=== PATIENT | male | born 1965 | race Caucasian/White ===

== ENCOUNTER → 2020-10-03 01:18 | Outpatient (CLI) | payer OTHER, SELFPAY ==
[2020-10-03 19:48] LABS: SARS-CoV-2 RNA PCR Negative
== END ==
PROVIDERS: PCP Family Medicine Sports Medicine; Visit Provider Internal Medicine Gastroenterology
DX: Z01.12 Encounter for hearing conservation and treatment (principal); Z20.822 Contact with and (suspected) exposure to COVID-19
CPT/HCPCS: C9803; U0003; U0005

== ENCOUNTER 2020-10-07 02:14 | Day surgery (SDC) | payer OTHER, SELFPAY ==
[2020-09-29 14:42] VITALS: BMI 29.0
[2020-10-07 07:15] VITALS: BP 155/100; PULSE 79; RESP 20; TEMP 36.3; O2SAT 100; BMI 29.6
--- NOTE | 2020-10-07 07:27 | PM.HPGS ---
History of Present Illness History of Present Illness Consent: Risks, benefits, and alternatives have been discussed and questions answered. Patient agrees to proceed with procedure. Chief complaint: Neoplasm Screening Narrative: Jw Ryan is a 55 year old male referred for colon cancer screening Review of Systems Review of Systems: All systems reviewed & are unremarkable except as noted in HPI and below [facility] Social History Social History Smoking packs per day: 0.5 Smoking cigarettes per day: 10.0 Years smoked: 15 Smoking pack-years: 7.50 Smoking status: Former smoker Tobacco type: cigarettes Alcohol intake: never Substance use type: does not use Living arrangements: with family Spiritual care concerns: No Meds Home Medications and Allergies Home Medications Medication Instructions Recorded Confirmed Type sodium,potassium,mag sulfates 17.5 See Rx Instructions PO .COMPLEX 09/25/20 Rx gram-3.13 gram-1.6 gram oral soln #354 ml atorvastatin 20 mg PO DAILY 09/29/20 09/29/20 History metformin 500 mg PO DAILY 09/29/20 09/29/20 History Allergies Allergy/AdvReac Type Severity Reaction Status Date / Time No Known Allergies Allergy Verified 10/07/20 07:14 Vital Signs Vital Signs - 24 hr 10/07/20 07:15 Temperature 36.3 C L Pulse Rate 79 Respiratory Rate 20 Blood Pressure 155/100 H Pulse Oximetry 100 Exam Resp: Auscultation: clear to auscultation bilaterally Cardio: Rate: regular rate Rhythm: regular rhythm GI: GI Palp: Yes Soft to palpation and No Tenderness to palpation present (GI) Assessment and Plan Assessment and plan (1) Colon cancer screening: Code(s): Z12.11 - Encounter for screening for malignant neoplasm of colon Status: Acute Assessment and Plan: Colonoscopy with possible biopsy or polypectomy or cautery or injection of substances.
[2020-10-07] MEDS: LACTATED RINGERS 1,000 ML 150 ML IV CONT (07:32)
[2020-10-07 07:36] LABS: Glucose Point of Care 251 (65-105)
--- NOTE | 2020-10-07 08:09 | WPDANESEPPF ---
Anes - Initial Pre Proc Eval Procedure: Operation Date: 10/07/20 08:30 Proposed Procedures p Screening Colonoscopy - Earnest Segura MD Date/Time: 10/07/20 08:09 Surgeon: Earnest Segura MD Pre Op Diagnosis: Neoplasm Screening Patient Data Age: 55 Gender: M Height: 6 ft 1 in Weight: 101.8 kg Last Vital Signs Temp 97.4 F L 10/07/20 07:15 Pulse 79 10/07/20 07:15 Resp 20 10/07/20 07:15 BP 155/100 H 10/07/20 07:15 Pulse Ox 100 10/07/20 07:15 Allergies Allergy/AdvReac Type Severity Reaction Status Date / Time No Known Allergies Allergy Verified 10/07/20 07:14 Home Medications Medication Instructions Recorded Confirmed Type sodium,potassium,mag sulfates 17.5 See Rx Instructions PO .COMPLEX 09/25/20 Rx gram-3.13 gram-1.6 gram oral soln #354 ml atorvastatin 20 mg PO DAILY 09/29/20 09/29/20 History metformin 500 mg PO DAILY 09/29/20 09/29/20 History Laboratory Tests 10/07/20 07:30 POC Capillary Glucose 251 mg/dl H mg/dl (65-105) Patient hx anesthesia problems: none Family hx anesthesia problems: none PMFSH Past Medical History Medical History (Updated 10/07/20 @ 08:09 by Magno Olivier MD) Diabetes Hypertension Social History Social History Smoking packs per day: 0.5 Smoking cigarettes per day: 10.0 Years smoked: 15 Smoking pack-years: 7.50 Smoking status: Former smoker Tobacco type: cigarettes Alcohol intake: never Substance use type: does not use Living arrangements: with family Spiritual care concerns: No Anes - Eval Final PreProcedure Day of Procedure 10/07/20 08:09 Patient weight: obese Heart: regular rate and rhythm Lungs: clear to auscultation Airway: Mallampati scale class II Neurological: alert and oriented Last oral intake: >/= 8 hours ASA classification: III Emergent: no Anesthetic plan: proceed Anesthesia type and monitoring: general GIVS and standard monitoring Informed Consent: The patient's anesthetic plan and its attendant risks and benefits were discussed with the patient/family/POA. Questions were solicited and answers provided to the satisfaction of the patient/family/POA.
[2020-10-07 08:45] VITALS: BP 120/85; PULSE 68; RESP 18; O2SAT 100
[2020-10-07 08:55] VITALS: BP 120/78; PULSE 68; RESP 19; O2SAT 100
[2020-10-07 09:05] VITALS: BP 126/84; O2SAT 100
== END 2020-10-07 09:28 | disposition home or self-care (01) ==
PROVIDERS: PCP Family Medicine Sports Medicine; Visit Provider Internal Medicine Gastroenterology
PROC: 0DJD8ZZ Inspection of Lower Intestinal Tract, Via Natural or Artificial Opening Endoscopic (ICD-10-PCS; CPT 45378; principal; 2020-10-07 08:30)
DX: Z12.11 Encounter for screening for malignant neoplasm of colon (principal); K63.5 Polyp of colon; K64.8 Other hemorrhoids; Z98.0 Intestinal bypass and anastomosis status; I10 Essential (primary) hypertension; E11.9 Type 2 diabetes mellitus without complications; Z79.84 Long term (current) use of oral hypoglycemic drugs; Z87.891 Personal history of nicotine dependence; E66.9 Obesity, unspecified; Z68.29 Body mass index [BMI] 29.0-29.9, adult
CPT/HCPCS: 45380; 82948; 88305; C9803; J2704; J7120; U0003; U0005

== ENCOUNTER 2025-05-19 10:25 | Outpatient (CLI) | payer OTHER, SELFPAY ==
[2025-05-19 11:55] LABS: Anion Gap 8 mmol/L (4-12); Blood Urea Nitrogen 16 mg/dL (9-20); Calcium 8.7 mg/dL (8.4-10.2); Carbon Dioxide 28 mmol/L (22-30); Chloride 103 mmol/L (98-107); Estimated Glomerular Filt Rate > 60; Glucose 135 mg/dL (65-110); Potassium 4.5 mmol/L (3.4-5.0); Sodium 139 mmol/L (137-145)
== END 2025-05-19 10:26 | disposition home or self-care (01) ==
PROVIDERS: Anesthesiology; PCP Family Medicine; Visit Provider Orthopaedic Surgery
DX: E78.5 Hyperlipidemia, unspecified (principal); E11.9 Type 2 diabetes mellitus without complications
CPT/HCPCS: 36415; 80048

== ENCOUNTER 2025-05-26 01:29 | Day surgery (SDC) | payer OTHER, SELFPAY ==
[2025-05-16 09:26] VITALS: BMI 29.6
--- NOTE | 2025-05-16 09:27 | PC.NURSE ---
[facility] has started construction of its new state of the art ER which will open Spring 2026. With this, we anticipate parking may be a challenge for some our surgical patients and families. Parking spaces are limited but are available for all Surgical, obstetrics, and ER patients sharing this lot. If you arrive and find you are having a hard time finding a parking space, please note that we understand the challenges, please drive around the hospital and park near Hospital Entrance 1. When you enter this entrance, you can ask a volunteer to direct or take you back to the surgical waiting area to check in. We appreciate everyone?s understanding of these expected challenges while we build for your future. Report to the Outpatient Waiting Room, entrance under the green pavilion located off [address], at time _0800_ on date _[id number]_. Planned Procedure Time: _1000_.? Time changes happen often and if your time is changed the preop area will call you the afternoon before. - You and your visitor will be asked to self-screen and do not enter if you have any COVID symptoms. Please call surgeon if you need to reschedule. - A mask is optional within the hospital at this time. Patients may have clear liquids (water, carbonated beverages, clear teas, apple juice) until 3 hours prior to surgery with a maximum of 20 ounces. - No food from midnight until time of surgery and no smoking, or chewing tobacco (or any form of nicotine). No chewing gum, candy or mints. Take only the following medications with a SIP of water on the morning of surgery: ___None____ DO NOT STOP ANY OF YOUR OTHER PRESCRIPTION MEDICATIONS PRIOR TO SURGERY EXCEPT THE FOLLOWING Hold all vitamins and supplements for 3 days per anesthesiologist. Medications to discontinue per physician Date to take last rtrb__[id number]___ Please no make-up, nail persian, hairspray, perfume, deodorant, or body powder the day of surgery.? No jewelry (including any body piercings) or valuables the day of surgery, leave them at home.? Please take a shower or bath the night before, or the morning of, surgery with an antibacterial soap.? Wear comfortable, loose fitting clothing.? - Jewelry must be removed prior to entering the operating room.? Rings and piercings that are not removed may be cut off. - The hospital will not accept responsibility for valuables.? - Please leave all valuables, including medications, at home the day of surgery. If you are going home after surgery, a licensed van cdl driver must drive you home.? - NO public transportation without another adult if you receive anesthesia. - We recommend that an adult stay with you for 24 hours following discharge. - We also recommend that you do not drive, make important decision, drink alcoholic beverages, or take any drugs that were not prescribed by your health care provider for at least 24 hours after your discharge time. Follow any additional instructions given to you from your surgeon. Telephone instructions given to __Tom__and asked if any additional questions and then verbalized understanding. Patient advised to call surgeon office or pre surgery nurse liaison [phone] if any additional questions.
--- NOTE | 2025-05-22 07:09 | PM.IMHP ---
H&P: HPI History of Present Illness Date/Time: 05/22/25 07:09 Chief Complaint: Patient is knee pain left. He has failed conservative treatment continues to have locking and catching and mechanical symptoms. He would like to consider arthroscopy of the left knee it proceed as indicated. Review of Systems Musculoskeletal: Musculoskeletal: Reports arthralgias, Reports joint swelling and Reports stiffness Neurologic: Reports abnormal gait [facility] Past Medical History Medical History Hypertension Diabetes Social History Social History (Updated 04/29/25 @ 07:24 by Rosa Maria Alfonso [facility]) Smoking packs per day: 0.5 Smoking cigarettes per day: 10.0 Years smoked: 20 Smoking pack-years: 10.00 Smoking status: Former smoker Tobacco type: cigarettes Smoking end date: 05/16/16 Alcohol intake: former Substance use: never Substance use type: does not use Current Housing: Decline to Answer Concerned About Future Housing: Decline to Answer Difficulty Paying Gas/Electric Bills: Decline to Answer Difficulty Paying for Meds: Decline to Answer Currently Unemployed: Decline to Answer Education: Decline to Answer Difficulty w/ Childcare or Family Care: Decline to Answer Living arrangements: with family Spiritual care concerns: No Meds Home Medications and Allergies Home Medications ?Medication ?Instructions ?Recorded ?Confirmed ?Type atorvastatin 20 mg tablet 20 mg PO DAILY 09/29/20 05/16/25 History metformin 500 mg tablet,extended 500 mg PO DAILY 09/29/20 05/16/25 History release 24 hr multivitamin (Daily Multi-Vitamin 1 tablet PO DAILY 05/16/25 05/16/25 History tablet) Allergies Allergy/AdvReac Type Severity Reaction Status Date / Time No Known Allergies Allergy Verified 05/16/25 09:13 Exam Narrative: On exam he is tender medially over the left knee is catching locking and pain. Neurologically he is grossly intact. He has tenderness palpation and pain to manipulation. He walks with an antalgic gait. This trouble with normal activities. Eyes: General: appearance normal, both eyes and all related structures Neck: Neck: supple Resp: Effort & Inspection: normal respiratory effort Cardio: Rate: regular rate Rhythm: regular rhythm Knee X-Ray 04/08/25 Orthopedics Result Report 04/08/25 Assessment and Plan Assessment and plan (1) Acute medial meniscus tear of left knee: Code(s): S83.242A - Other tear of medial meniscus, current injury, left knee, initial encounter Status: Acute Assessment and Plan: Patient has a medial meniscal tear left knee. He has failed conservative treatment like to consider arthroscopic intervention. He continues to have mechanical-type symptoms. I discussed treatment options with him in detail including the risks, benefits, limitations, and alternatives. Will proceed per his request. He understands and agrees.
[2025-05-26] VITALS (9 sets, daily range): BP systolic 101–139; BP diastolic 52–87; PULSE 46–77; RESP 15–20; TEMP 36.5–36.6; O2SAT 67–100; BMI 28.4
--- OUTSIDE RECORDS SUMMARY | 2025-05-26 01:32 | XMS_ITS | Clinical Summary ---
Author Organization [facility] Address [address] [place] [id number] Care Team Providers Care Financial Planning Advisor Name Role Phone Anthony Wheat MD Primary Care Provider Encounters Date Type Department Care Team Description 04/22/2025 4:00 PM CDT - 04/22/2025 11:59 PM CDT Hospital Encounter [facility] [address] [place] [id number] Other tear of medial meniscus, current injury, left knee, initial encounter Discharge Disposition: Discharge to home or self care from Last 3 Months Social History Tobacco Use Types Packs/Day Years Used Date Smoking Tobacco: Never Assessed Sex and Gender Information Value Date Recorded Sex Assigned at Not on file Legal Sex Male 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 Gender Identity Not on file Sexual Orientation Not on file Plan of Treatment Health Maintenance Due Date Last Done Comments Colon Cancer Screening-Colonoscopy 1967 Depression Screening 1967 Hepatitis C Screening 1967 Prostate Cancer Screening-PSA 1967 Hepatitis B Screening 1985 Regular Well Visit/Exam 18-64 1985 Zoster Vaccine (1 of 2) 2017 DTaP/Tdap/Td Vaccine (2 - Tdap) 02/10/2019 02/10/2009 Covid-19 Vaccine (2024-2 6 season) 2025 07/07/2021, 10/22/2020, 10/01/2020 Influenza Vaccine (#1) 2025 8, 04/12/2015 Pneumococcal vaccine <65 Aged Out No longer eligible based on patient's age to complete this topic Procedures Procedure Name Priority Date/Time Associated Diagnosis Comments MRI KNEE LEFT WO CONTRAST Schedule Routine, Read Routine (OP Routine) 04/22/2025 4:53 PM CDT Other tear of medial meniscus, current injury, left knee, initial encounter from Last 3 Months Results * MRI Knee Left WO Contrast (04/22/2025 4:53 PM CDT) Anatomical Region Laterality Modality Lower Extremities Left Magnetic Reson ance 04/23/2025 6:17 AM CDT Narrative 04/23/2025 6:25 AM CDT EXAM DESCRIPTION: MRI KNEE LEFT WO CONTRAST REASON FOR STUDY: S83.242A 3 weeks ago patient was doing leg curls, and the next day his left knee was swollen and in pain , still painful and not as swollen TECHNIQUE: Multiplanar, multisequence MRI of the left knee was performed without contrast. COMPARISON: None available FINDINGS: In the medial compartment, there is a complex inner margin and undersurface tear of the medial meniscus posterior horn. The tear propagates to the meniscal body as an incomplete horizontal tear. Partial-thickness cartilage loss of the central weight-bearing femoral condyle with superimposed fissuring and subchondral edema. Scratch In the lateral compartment, the meniscus is intact. Partial-thickness cartilage loss of the posterior tibial plateau with superimposed fissuring. In the patellofemoral compartment, there is partial-thickness cartilage loss of the median ridge with fissuring. Matching deep partial and full-thickness cartilage loss of the central trochlea with fissuring. The cruciate ligaments are intact. The collateral ligaments are intact. Edema is present superficial to the medial collateral ligament. Extensor mechanism enthesophyte formation is present. The popliteus tendon is intact. Large knee effusion with mild synovitis. There are no loose bodies. IMPRESSION: 1. Complex inner margin and undersurface tear of the left medial meniscus posterior horn which propagates to the meniscal body as an incomplete horizontal tear. 2. Mild patellofemoral predominant tricompartmental left knee chondrosis. 3. Large left knee effusion with synovitis. 4. Edema superficial to the left medial collateral ligament, which may represent medial collateral ligament bursitis versus a low-grade sprain. THIS IS AN ELECTRONICALLY VERIFIED FINAL REPORT 04/23/2025 6:25 AM - Electronically signed by Nelson Guerrero M.D. MF: [email or web address] Report ID: [id number] Reading Location: [id number] Procedure Note Nelson Guerrero MD - 04/23/2025 EXAM DESCRIPTION: MRI KNEE LEFT WO CONTRAST REASON FOR STUDY: S83.242A 3 weeks ago patient was doing leg curls, and the next day his left kneewas swollen and in pain , still painful and not as swollen TECHNIQUE: Multiplanar, multisequence MRI of the left knee was performed without contrast. COMPARISON: None available FINDINGS: In the medial compartment, there is a complex inner margin andundersurface tear of the medial meniscus posterior horn. The tear propagates to the meniscal body as an incomplete horizontal tear. Partial-thicknesscartilage loss of the central weight-bearing femoral condyle with superimposedfissuring and subchondral edema. Scratch In the lateral compartment, the meniscus is intact. Partial-thickness cartilage loss of the posterior tibial plateau with superimposedfissuring. In the patellofemoral compartment, there is partial-thickness cartilageloss of the median ridge with fissuring. Matching deep partial andfull-thickness cartilage loss of the central trochlea with fissuring. The cruciate ligaments are intact. The collateral ligaments are intact. Edema is present superficial to the medial collateral ligament. Extensor mechanism enthesophyte formation is present. The popliteus tendon isintact. Large knee effusion with mild synovitis. There are no loose bodies. IMPRESSION: 1. Complex inner margin and undersurface tear of the left medialmeniscus posterior horn which propagates to the meniscal body as an incomplete horizontal tear. 2. Mild patellofemoral predominant tricompartmental left kneechondrosis. 3. Large left knee effusion with synovitis. 4. Edema superficial to the left medial collateral ligament, which may represent medial collateral ligament bursitis versus a low-grade sprain. THIS IS AN ELECTRONICALLY VERIFIED FINAL REPORT 04/23/2025 6:25 AM - Electronically signed by Nelson Guerrero M.D. MF: [email or web address] Report ID: [id number] Reading Location: [id number] Joseph Cuevas MD IMG MRI PROCEDURES Final Re sult from Last 3 Months Insurance [employer] [facility] [facility] [employer] Care Teams Financial Planning Advisor Relationship Specialty Start Date End Date Anthony Wheat MD [address] [place], [place] [id number] PCP - General Family Medicine 12/07/21
--- OUTSIDE RECORDS SUMMARY | 2025-05-26 01:32 | XMS_ITS | Clinical Summary ---
Author Organization [facility] Address [address] [place] [address] Phone Care Team Providers Care Tire And Lube Technician Name Role Phone Oneil Sanches MD Primary Care Provider [phone] Social History Tobacco Use Types Packs/Day Years Used Date Smoking Tobacco: Never Assessed Sex and Gender Information Value Date Recorded Sex Assigned at Not on file Legal Sex Male 10:28 PM CDT Gender Identity Not on file Sexual Orientation Not on file Plan of Treatment Health Maintenance Due Date Last Done Comments Hepatitis C Virus (HCV) Screening 1967 TdaP Immunization 1967 Hepatitis B Immunization (1 of 3 - 19+ 3-dose series) 1986 Cologuard 2012 Colonoscopy 2012 Colorectal Cancer Screening 2012 Immunochemical Fecal Occult Blood 2012 Pneumococcal Immunization (5 0+ years) (1 of 1 - PCV) 2017 Zoster Immunization (1 of 2) 2017 Influenza Immunization (#1) 2025 SARS-COV-2 Immunization ( - season) 2025 Respiratory Syncytial Virus (RSV) Immunization (Adult) (1 - 1-dose 75+ series) 2042 Human Papillomavirus (HPV) Immunization Aged Out No longer eligible b ased on patient's age to complete this topic Meningococcal Immunization (ACWY) Aged Out No longer eligible based on patient's age to complete this topic Rotavirus Immunization Aged Out No lo nger eligible based on patient's age to complete this topic Care Teams Tire And Lube Technician Relationship Specialty Start Date End Date Oneil Sanches MD PCP - General Internal Medicine 06/27/17
--- NOTE | 2025-05-26 07:50 | ECG_ITS ---
Test Date: 2025-05-26 09:10:38 Measurements Intervals Eldred Rate: 69 P: 138 DE: 133 QRS: 166 QRSD: 88 T: 151 QT: 391 QTc: 420 Interpretive Statements SINUS RHYTHM ARM LEADS REVERSED EARLY PRECORDIAL R/S TRANSITION BASELINE ARTIFACT- V1 BORDERLINE ECG No previous ECG available for comparison Electronically Signed On 05-26-2025 09:48:44 CDT by Dhaval Diaz D.O.
[2025-05-26] MEDS: LACTATED RINGERS 1,000 ML 30 ML IV CONT (08:45)
[2025-05-26] MEDS: ACETAMINOPHEN 500 MG TABLET 1000 MG PO (08:45)
[2025-05-26] MEDS: KETOROLAC 15 MG/ML VIAL (*BKC) IV PUSH (08:45)
--- NOTE | 2025-05-26 09:00 | WPDHPUPDATE1 ---
History and Physical Update Update Date/Time: 05/26/25 09:00 History and Physical has been reviewed, including an updated exam of the patient. There are NO changes in the patient's condition. Risks, benefits, and alternatives have been discussed and questions answered. Patient agrees to proceed with procedure. Will proceed with arthroscopy partial meniscectomy proceed as indicated left knee. He is well aware the fact that I cannot change any degenerative changes.
--- NOTE | 2025-05-26 09:38 | WPDANESEPPF ---
Anes - Initial Pre Proc Eval Procedure: Operation Date: 05/26/25 10:00 Proposed Procedures p Left Knee Arthroscopy Partial Medial Meniscectomy, Proceed As Indicated - Joseph Cuevas MD Date/Time: 05/26/25 09:38 Surgeon: Joseph Cuevas MD Pre Op Diagnosis: Left Medial Meniscal Tear Patient Data Age: 60 Gender: M Height: 1.83 m Weight: 95.1 kg Last Vital Signs Temp 97.9 F 05/26/25 08:56 Pulse 77 05/26/25 08:56 BP 139/87 05/26/25 08:56 Pulse Ox 100 05/26/25 08:56 O2 Del Method Room Air 05/26/25 08:56 Allergies Allergy/AdvReac Type Severity Reaction Status Date / Time No Known Allergies Allergy Verified 05/16/25 09:13 Home Medications ?Medication ?Instructions ?Recorded ?Confirmed ?Type atorvastatin 20 mg tablet 20 mg PO DAILY 09/29/20 05/16/25 History metformin 500 mg tablet,extended 500 mg PO DAILY 09/29/20 05/16/25 History release 24 hr multivitamin (Daily Multi-Vitamin 1 tablet PO DAILY 05/16/25 05/26/25 History tablet) hydrocodone 5 mg-acetaminophen 325 1 tablet PO Q4H PRN pain #30 tabs 05/26/25 Rx mg tablet Laboratory Tests 05/26/25 08:44 POC Capillary Glucose 171 H mg/dl (65-105) Patient hx anesthesia problems: none Family hx anesthesia problems: none Results Review: All pre-operative results and documents have been reviewed as part of the pre-operative evaluation. [facility] Past Medical History Medical History Hypertension Diabetes Social History Social History Smoking packs per day: 0.5 Smoking cigarettes per day: 10.0 Years smoked: 20 Smoking pack-years: 10.00 Smoking status: Former smoker Tobacco type: cigarettes Smoking end date: 05/16/16 Alcohol intake: former Substance use: never Substance use type: does not use Current Housing: Decline to Answer Concerned About Future Housing: Decline to Answer Difficulty Paying Gas/Electric Bills: Decline to Answer Difficulty Paying for Meds: Decline to Answer Currently Unemployed: Decline to Answer Education: Decline to Answer Difficulty w/ Childcare or Family Care: Decline to Answer Living arrangements: with family Spiritual care concerns: No Anes - Eval Final PreProcedure Day of Procedure 05/26/25 09:38 Patient weight: normal and overweight Lungs: normal air movement Airway: Mallampati scale class II Neurological: alert and oriented Last oral intake: >/= 8 hours ASA classification: II Emergent: no Anesthetic plan: proceed Anesthesia type and monitoring: general LMA and standard monitoring Results Review: All pre-operative results and documents have been reviewed as part of the pre-operative evaluation. DM fsbs 171, Hyperlipidemia, BMI 28. Overall good exercise tolerance, no cp or sob w 1-2 fos. Informed Consent: The patient's anesthetic plan and its attendant risks and benefits were discussed with the patient/family/POA. Questions were solicited and answers provided to the satisfaction of the patient/family/POA.
[2025-05-26] MEDS: ceFAZolin 2 GM in SODIUM CHLORIDE 0.9% IV 50 ML 100 ML IVPB (09:44)
[2025-05-26] MEDS: LIDO 1%/EPINEPHRINE 1:100,000 20 ML VIAL INFILTRATE (10:02)
--- NOTE | 2025-05-26 10:27 | P.OP_ITS ---
Procedure Note - Detailed Date of Procedure 05/26/25 Pre-op Diagnosis Left Medial Meniscal Tear Post-op Diagnosis Same Procedure Performed LEFT knee arthroscopy with partial meniscectomy Surgeon Joseph Cuevas MD Anesthesia General Indications Pain, Locking and Catching Description of Procedure Patient brought to operating room # 7. An anesthetic was administered. The knee was sterilely prepped and draped in the usual manner. Standard portals were u sed. Superior medial portal was used for the outflow cannula, inferior lateral portal was used for the scope, inferior medial portal was used for the instruments. Arthroscopy was performed, the patellar femoral joint degenerative changes. The medial compartment showed a complex tear. The lateral compartment showed fraying. The ACL was intact. Using baskets and camila the meniscal tear was trimmed back to a stable base so the nothing further could be pulled into the joint. Any loose or delaminated fragments were gently trimmed to a stable base. The plica was debrided. At this point the instruments were withdrawn, sutures placed and patient left the operating room in satisfactory condition. Estimated Blood Loss 20 Drains No Packing No Pathology None sent Complications No immediate complications Condition Stable Disposition PACU [facility] Billing Surgery - Charge Forward: Surgery Billing ([id number] [facility])
== END 2025-05-26 12:47 | disposition home or self-care (01) ==
PROVIDERS: PCP Family Medicine; Visit Provider Orthopaedic Surgery
PROC: (CPT 29870; principal; 2025-05-26 10:00)
DX: S83.232A Complex tear of medial meniscus, current injury, left knee, initial encounter (principal); X58.XXXA Exposure to other specified factors, initial encounter; I10 Essential (primary) hypertension; E78.5 Hyperlipidemia, unspecified; E11.9 Type 2 diabetes mellitus without complications; Z79.84 Long term (current) use of oral hypoglycemic drugs; Z79.891 Long term (current) use of opiate analgesic; Z87.891 Personal history of nicotine dependence
CPT/HCPCS: 29881; 82948; 93005; J0690; A9270; J1100; J1885; J2003; J2004; J2250; J2405; J2704; J3010; J7120